=== PATIENT | female | born 1995 | race Hispanic/Latino ===

== ENCOUNTER 2018-11-24 18:25 | Emergency (ER) | payer SELFPAY ==
[2018-11-24 19:19] LABS: Bilirubin Negative (Negative); Blood, Urine Negative (Negative); Clarity CLOUDY (Clear); Glucose, Urine (Dipstick) 100 mg/dL (Negative); Leukocyte Moderate (Negative); Nitrite Negative (Negative); Protein, Urine (Dipstick) Trace mg/dL (Neg-Trace); Specific Gravity, Urine 1.023 (1.002-1.036); pH, Urine 7.5 (5.0-9.0)
[2018-11-24 19:21] LABS: Bacteria/HPF 2+ HPF (None Seen); Hyaline Casts/LPF 4-6 HYALINE CAST LPF (0-3 Hyaline); Pathc Cast-AUWi Flag 1.63 (0-2.49); Squamous Epithelial 0-3 HPF (0-3)
== END 2018-11-24 20:06 | disposition home or self-care (01) ==
LOC: ERS 18:25
DX: O99.89 Other specified diseases and conditions complicating pregnancy, childbirth and the puerperium (principal); R04.0 Epistaxis; O23.42 Unspecified infection of urinary tract in pregnancy, second trimester; Z3A.23 23 weeks gestation of pregnancy
CPT/HCPCS: 36416; 81003; 81015; 87086; 99284

== ENCOUNTER 2019-02-08 20:08 | Inpatient (IN) | payer SELFPAY ==
[2019-02-08] MEDS ORDERED: Lidocaine 1% (PF) 30 ML VIAL SC PRN (20:44)
[2019-02-08] MEDS ORDERED: Ondansetron PF 4 MG/2 ML Vial IVP PRN (20:44)
[2019-02-08] MEDS ORDERED: Promethazine HCl 25 MG/ML VIAL IM PRN (20:44)
[2019-02-08] MEDS ORDERED: NS / Oxytocin 40 units/1000ml 1,000 ML IV PRN (20:44)
--- NOTE | 2019-02-08 20:56 | PDOC.FPROB ---
FMR OB H&P: HPI - History of Present Illness Chief Complaint: Medical IOL 2/2 oligohydramnios and grade 3 placenta History of Present Illness: This is a at 37.4 wks by 31.4 wk (EDC 02/25/2019) US who presents to L&D from clinic this afternoon after an OB ultrasound showing GAURAV of 1.38 and a Grad 3 placenta. Pt's is further complicated by GBS positive status and Late to PNC. She denies fever, chills, LOF, vaginal bleeding, chest pain, SOB. Pt reports FM. Primary Care Physician: Dr. Braulio Mccoy FMR OB H&P: Current - Care : 2 Para: 0 Gestational age: 37.4 Due date: 02/25/2019 Dating Criteria: 31.4 wk US - OB Labs Blood type: O RH: positive Antibody Screen: negative HIV: negative RPR: negative HepBsAg: negative Rubella: immune Gonorrhea: negative Chlamydia: negative Pap Smear: Negative 1 hour gtt: 95 A1c: 5.4 GBS: positive FMR OB H&P: History - Past Medical History PMH: None - OB History OB History: Previous miscarriage - [employer] MANAGER History [employer] MANAGER History: none - Surgical History Sx History: None - Social History Social History: None - Family History Family History: none FMR OB H&P: Medications - Current Home Medications: Medication Instructions Recorded Confirmed Type Vit37/Iron/Folic Acid 1 tab PO DAILY 02/08/19 02/08/19 History [Prenata Chewable Tablet] Allergies/Adverse Reactions: Allergies Allergy/AdvReac Type Severity Reaction Status Date / Time No Known Drug Allergies Allergy Verified 02/08/19 22:05 FMR OB H&P: ROS - Review of Systems General: denies: fever/chills, weight/appetite/sleep changes, night sweats, fatigue Eyes: denies: eye pain, vision changes ENT: denies: nasal congestion, rhinorrhea, pain with swallowing Cardiovascular: denies: chest pain, palpitation, edema Respiratory: denies: cough, congestion, shortness of breath Gastrointestinal: reports: diarrhea (twice). denies: abdominal pain, nausea, vomiting Genitourinary (Female): denies: incontinence, dysuria, hematuria, vaginal pain, vaginal pressure Musculoskeletal: denies: pain, stiffness Neurologic: denies: numbness, syncope Integumentary: denies: itching Psychological: denies: depression, anxiety FMR OB H&P: Vital Signs - Maternal Vital signs: BP 121/71, HR 93, RR 18, Temp 98.7 - Heart Tones Baseline: 140 Variability: moderate Acceleration: present Deceleration: absent Category: category 1 [place] contractions every: none FMR OB H&P: Physical Exam - Physical Exam General: NAD, awake, alert and oriented HEENT: normocephalic and atraumatic, PERRLA, MMM, conjunctiva clear, grossly normal hearing, oropharynx clear Neck: supple, FROM, trachea midline Chest: non-tender to palpation Heart: RRR, normal S1/S2, no murmurs/rubs/gallops, pulses present General: CTAB, no respiratory distress, good air movement, no wheezing Abdomen: soft, gravid, non-tender, bowel sound present Musculoskeletal: normal gait and station, pulses present, FROM in all four extremities Neurological: cranial nerves II through XII intact, no focal deficit Skin: good tugor, capillary refill <2 seconds Lymphatic: no unusual bruising or bleeding, no purpura Psychiatric: intact recent and remote memory, good judgement and insight - Pelvic Exam SVE: 0/0/-3 Matos score: 0 FMR OB H&P: A/P - Problem List (1) Term Current Visit: Yes Status: Acute Code(s): Z34.90 - ENCNTR FOR SUPRVSN OF NORMAL , UNSP, UNSP TRIMESTER (2) grade 3 placenta Current Visit: Yes Status: Acute (3) GBS (group B streptococcus) infection Current Visit: Yes Status: Acute Code(s): A49.1 - STREPTOCOCCAL INFECTION, UNSPECIFIED SITE (4) Oligohydramnios Current Visit: Yes Status: Acute Code(s): O41.00X0 - OLIGOHYDRAMNIOS, UNSP TRIMESTER, NOT APPLICABLE OR UNSP Disposition: This is a 23 yo at 37.4 wks by a 31.4 wk US presenting for a medically indicated IOL sIUP, term -Admit to L&D -NPO with ice chips -LR 125 ml/hr -Initial check: 0/0/-3 -FHTs 140s, Cat 1 -Plan for cytotec induction based on check -Will recheck 4 hrs after cytotec -Bedside US shows vertex position GBS positive -Start prophylaxis Oligohydramnios Late to PNC Discussion: Date/Time: 02/08/192049 This H&P was discussed with Dr. Jones and Dr. Brito who agree with the above documentation and plan. Addendum - Attending - Attending Attestation Date/Time: 02/09/19946 I personally evaluated the patient and discussed the management with Dr. Santos on 02/08/2019 I agree with the History, Examination, Assessment and Plan documented above with any addition or exceptions noted below - 23 yo @ 37.4 weeks sent from clinic for induction due to oligohydramnios. Patient denies ctx, LOF, VB. ( +)FM. Afebrile VSS. A/P: 1) IUP @37.4 weeks with oligohydramnios- unfavorable cervix; will use misprostil for cervical ripening and possible balloon. Category 1 FHTs.
[2019-02-08] MEDS ORDERED: Penicillin G Potassium 5 MILL.UNITS in Sodium Chloride 0.9% 100 ML IVPB SCH (21:00)
[2019-02-08 21:03] VITALS: BMI 31.9
[2019-02-08] MEDS ORDERED: Misoprostol 100 MCG TAB ONE (21:24)
[2019-02-08 21:41] LABS: Hemoglobin 11.1 g/dL (12.0-16.0); Mean Corpuscular HGB CONC 33.9 g/dL (32.0-36.0); Mean Corpuscular Hemoglobin 29.2 pg (27.0-31.0); Mean Platelet Volume 10.3 fL (7.4-10.4); Platelet Count 158 thou/uL (130-400); RBC Distribution Width 15.7 % (11.5-14.5); Red Blood Cell (RBC) Count 3.81 mill/uL (4.20-5.40)
[2019-02-08] MEDS: Misoprostol 100 MCG TAB VAG SCH (22:04)
[2019-02-08 22:16] LABS: Syphilis Antibody Nonreactive (Nonreactive); Syphilis Antibody Index 0.02 S/CO (<1.00 Non-Reactive)
[2019-02-08 22:24] LABS: HBSAg Index 0.28 S/CO (0-0.99); Hep B Surf Ag Non-Reactive S/CO (NonReactive)
--- NOTE | 2019-02-09 01:53 | PDOC.LDPN ---
Labor & Delivery Progress Note - Subjective Subjective: comfortable - Objective Vital signs reviewed and normal: yes General: NAD, resting Uterine fundus: non tender SVE: 1:40 Dilation: 1 Effacement: 0% Station: -3 FHT: category 1, variability present [place] contractions every: Occasional - Assessment (1) GBS (group B streptococcus) infection Code(s): A49.1 - STREPTOCOCCAL INFECTION, UNSPECIFIED SITE Current Visit: Yes Status: Acute (2) Oligohydramnios Code(s): O41.00X0 - OLIGOHYDRAMNIOS, UNSP TRIMESTER, NOT APPLICABLE OR UNSP Current Visit: Yes Status: Acute (3) Term Code(s): Z34.90 - ENCNTR FOR SUPRVSN OF NORMAL , UNSP, UNSP TRIMESTER Current Visit: Yes Status: Acute (4) grade 3 placenta Current Visit: Yes Status: Acute Plan: continue plan of care, labor augmentation -: This is a 23 yo at 37.5 wks by a 31.4 wk US presenting for a medically indicated IOL sIUP, term -NPO with ice chips -LR 125 ml/hr -SVE: 1/0/-3. -FHTs 140s, Cat 1 -Cytotec administered again at this time for labor augmentation -Bedside US shows vertex position GBS positive -Start prophylaxis Oligohydramnios
[2019-02-09] MEDS: Lactated Ringer's 1,000 ML IV SCH ×5 (04:46→23:26)
--- NOTE | 2019-02-09 06:09 | PDOC.LDPN ---
Labor & Delivery Progress Note - Subjective Subjective: comfortable, no concerns, other (Feeling contractions more) - Objective Vital signs reviewed and normal: yes General: NAD, resting SVE: 1.5/50/-2 FHT: category 1 (Baseline 130s), variability present (modedrate) [place] contractions every: 1-2 minutes - Assessment (1) Term Code(s): Z34.90 - ENCNTR FOR SUPRVSN OF NORMAL , UNSP, UNSP TRIMESTER Current Visit: Yes Status: Acute (2) grade 3 placenta Current Visit: Yes Status: Acute (3) GBS (group B streptococcus) infection Code(s): A49.1 - STREPTOCOCCAL INFECTION, UNSPECIFIED SITE Current Visit: Yes Status: Acute (4) Oligohydramnios Code(s): O41.00X0 - OLIGOHYDRAMNIOS, UNSP TRIMESTER, NOT APPLICABLE OR UNSP Current Visit: Yes Status: Acute Plan: continue plan of care -: This is a 23 yo at 37.5 wks by a 31.4 wk US presenting for a medically indicated IOL sIUP, term -NPO with ice chips -LR 125 ml/hr -SVE: 1.5/50/-2. -FHTs 130s, Cat 1 -Unable to give cytotec at this time due to contractions, consider balloon vs pitocin -Bedside US shows vertex position GBS positive -Start prophylaxis Oligohydramnios Late to care
--- NOTE | 2019-02-09 06:50 | PDOC.LDPN ---
Labor & Delivery Progress Note - Subjective Subjective: comfortable - Objective Vital signs reviewed and normal: yes General: NAD, resting Uterine fundus: non tender SVE: 645 Dilation: 2 Effacement: 50% Station: -3 FHT: category 1, variability present [place] contractions every: 4 - Assessment (1) GBS (group B streptococcus) infection Code(s): A49.1 - STREPTOCOCCAL INFECTION, UNSPECIFIED SITE Current Visit: Yes Status: Acute (2) Oligohydramnios Code(s): O41.00X0 - OLIGOHYDRAMNIOS, UNSP TRIMESTER, NOT APPLICABLE OR UNSP Current Visit: Yes Status: Acute (3) Term Code(s): Z34.90 - ENCNTR FOR SUPRVSN OF NORMAL , UNSP, UNSP TRIMESTER Current Visit: Yes Status: Acute (4) grade 3 placenta Current Visit: Yes Status: Acute Plan: continue plan of care, labor augmentation -: This is a 23 yo at 37.5 wks by a 31.4 wk US presenting for a medically indicated IOL sIUP, term -NPO with ice chips -LR 125 ml/hr -SVE: 2/50/-2. Balloon placed. Will check in a few hours -FHTs 130s, Cat 1 -Bedside US shows vertex position GBS positive -Start prophylaxis Oligohydramnios Late to care
[2019-02-09] MEDS: Misoprostol 100 MCG TAB VAG SCH ×5 (07:17→23:24)
[2019-02-09] MEDS: Penicillin G 2.5 MILL.units 2.5 MILL.UNITS in Premix Bag 1 BAG IVPB SCH ×5 (07:17→23:24)
[2019-02-09] MEDS ORDERED: NS w/ Oxytocin 10 units 500 ML ONE (10:12)
[2019-02-09] MEDS ORDERED: NS w/ Oxytocin 10 units 500 ML IV SCH (10:15)
--- NOTE | 2019-02-09 10:56 | PDOC.LDPN ---
Labor & Delivery Progress Note - Subjective Subjective: comfortable - Objective Vital signs reviewed and normal: yes General: NAD, resting Uterine fundus: non tender [place] contractions every: 4-5 minutes - Assessment (1) GBS (group B streptococcus) infection Code(s): A49.1 - STREPTOCOCCAL INFECTION, UNSPECIFIED SITE Current Visit: Yes Status: Acute (2) Oligohydramnios Code(s): O41.00X0 - OLIGOHYDRAMNIOS, UNSP TRIMESTER, NOT APPLICABLE OR UNSP Current Visit: Yes Status: Acute (3) Term Code(s): Z34.90 - ENCNTR FOR SUPRVSN OF NORMAL , UNSP, UNSP TRIMESTER Current Visit: Yes Status: Acute (4) grade 3 placenta Current Visit: Yes Status: Acute Plan: continue plan of care, pitocin for augmentation -: This is a 23 yo at 37.5 wks by a 31.4 wk US presenting for a medically indicated IOL sIUP, term -NPO with ice chips -LR 125 ml/hr -SVE: 2/50/-2@645. Balloon was placed @ 6:45. Balloon still in place on tug check at this time. Pt doing well. -Pt denies any severe pain at this time. -Will continue to monitor until balloon falls out. Will continue to check with increased pain or pressure. -FHTs 140, Cat 1 -Bedside US shows vertex position GBS positive -Start prophylaxis Oligohydramnios Late to care
--- NOTE | 2019-02-09 13:14 | PDOC.LDPN ---
Labor & Delivery Progress Note - Subjective Subjective: painful contractions - Objective Vital signs reviewed and normal: yes General: NAD Uterine fundus: non tender SVE: 1245 Dilation: 5 Effacement: 75% Station: -1 FHT: category 2, early decelerations, variability present [place] contractions every: 4 minutes - Assessment (1) GBS (group B streptococcus) infection Code(s): A49.1 - STREPTOCOCCAL INFECTION, UNSPECIFIED SITE Current Visit: Yes Status: Acute (2) Oligohydramnios Code(s): O41.00X0 - OLIGOHYDRAMNIOS, UNSP TRIMESTER, NOT APPLICABLE OR UNSP Current Visit: Yes Status: Acute (3) Term Code(s): Z34.90 - ENCNTR FOR SUPRVSN OF NORMAL , UNSP, UNSP TRIMESTER Current Visit: Yes Status: Acute (4) grade 3 placenta Current Visit: Yes Status: Acute Plan: continue plan of care, pitocin for augmentation -: This is a 23 yo at 37.5 wks by a 31.4 wk US presenting for a medically indicated IOL sIUP, term -NPO with ice chips -LR 125 ml/hr -SVE: 5/70/-1 @ 13:00 Balloon was placed @ 6:45 and was no longer in place at this check. Balloon removed. -Pt denies any severe pain at this time. -FHTs 140's. Early decels noted, Moderate Variability. Cat 2 strip. -Will continue with q2 hr cervical checks. -Bedside US shows vertex position GBS positive -Start prophylaxis Oligohydramnios Late to care
--- NOTE | 2019-02-09 14:31 | PDOC.LDPN ---
Labor & Delivery Progress Note - Subjective Subjective: painful contractions - Objective Vital signs reviewed and normal: yes General: NAD SVE: /-1 FHT: category 1 [place] contractions every: q2-3 min - Assessment (1) Term Code(s): Z34.90 - ENCNTR FOR SUPRVSN OF NORMAL , UNSP, UNSP TRIMESTER Current Visit: Yes Status: Acute (2) grade 3 placenta Current Visit: Yes Status: Acute (3) GBS (group B streptococcus) infection Code(s): A49.1 - STREPTOCOCCAL INFECTION, UNSPECIFIED SITE Current Visit: Yes Status: Acute (4) Oligohydramnios Code(s): O41.00X0 - OLIGOHYDRAMNIOS, UNSP TRIMESTER, NOT APPLICABLE OR UNSP Current Visit: Yes Status: Acute Plan: continue plan of care (IUP@37.5 weeks with oligohydramnios undergoing induction; progressing well. Pitocin started for augmentation. Reassuring FHTs. )
[2019-02-09] MEDS ORDERED: Ondansetron PF 4 MG/2 ML Vial ONE ×2 (16:24→20:14)
[2019-02-09] MEDS ORDERED: Dexamethasone 20 MG/5 ML VIAL ONE (16:24)
[2019-02-09] MEDS ORDERED: Ketorolac Tromethamine 30 MG/ML VIAL ONE ×2 (16:24→20:14)
--- NOTE | 2019-02-09 16:28 | PDOC.LDPN ---
Labor & Delivery Progress Note - Subjective Subjective: painful contractions - Objective Vital signs reviewed and normal: yes General: NAD Uterine fundus: non tender SVE: 4:15 Dilation: 7 Effacement: 90% Station: 0 FHT: category 2, early decelerations, late decelerations, absent or minimal variables (Had a small string of minimal variables. Came back to moderate variability) [place] contractions every: 4-5 minutes AROM: clear fluid IUPC placed: yes FSE placed: yes Resuscitative measures: maternal oxygen, maternal IV fluids, maternal position change - Assessment (1) GBS (group B streptococcus) infection Code(s): A49.1 - STREPTOCOCCAL INFECTION, UNSPECIFIED SITE Current Visit: Yes Status: Acute (2) Oligohydramnios Code(s): O41.00X0 - OLIGOHYDRAMNIOS, UNSP TRIMESTER, NOT APPLICABLE OR UNSP Current Visit: Yes Status: Acute (3) Term Code(s): Z34.90 - ENCNTR FOR SUPRVSN OF NORMAL , UNSP, UNSP TRIMESTER Current Visit: Yes Status: Acute (4) grade 3 placenta Current Visit: Yes Status: Acute Plan: continue plan of care -: This is a 23 yo at 37.5 wks by a 31.4 wk US presenting for a medically indicated IOL sIUP, term -NPO with ice chips -LR 125 ml/hr -SVE: 7/90/0 @ 16:15. -Cat 2 strip, FHT 140's. F FPt having some Early/Late decels. Pt had small period of minimal variability. Recovered quickly after position change, scalp stim and maternal oxygen. AROM with check. Clear fluid noted. IUPC placed. FSE placed. -Will continue to monitor and check every 1-2 hours or with increasing pain. Balloon was placed @ 6:45 and was no longer in place at 13:00. Balloon removed. -Pt having some pain. Does not desire epidural at this time. -Bedside US shows vertex position GBS positive -Start prophylaxis Oligohydramnios -Induction of labor due to [place] Late to care
--- NOTE | 2019-02-09 18:12 | PDOC.LDPN ---
Labor & Delivery Progress Note - Subjective Subjective: painful contractions - Objective Vital signs reviewed and normal: yes General: breathing through contractions SVE: 6-7/80%/0 FHT: category 2 [place] contractions every: ctx q5 - Assessment (1) Term Code(s): Z34.90 - ENCNTR FOR SUPRVSN OF NORMAL , UNSP, UNSP TRIMESTER Current Visit: Yes Status: Acute (2) grade 3 placenta Current Visit: Yes Status: Acute (3) GBS (group B streptococcus) infection Code(s): A49.1 - STREPTOCOCCAL INFECTION, UNSPECIFIED SITE Current Visit: Yes Status: Acute (4) Oligohydramnios Code(s): O41.00X0 - OLIGOHYDRAMNIOS, UNSP TRIMESTER, NOT APPLICABLE OR UNSP Current Visit: Yes Status: Acute -: IUP@ 37.5 weeks undergoing induction for oligohydramnios FHTs with moderate variability/early and variable decels; pitocin off currently ; maternal position changes. Will give additional fluid bolus. Resume pitocin if variables resolve.
[2019-02-09] MEDS ORDERED: Azithromycin 500 MG VIAL ONE (19:20)
[2019-02-09] MEDS ORDERED: Bicitra 30 ML UDCUP ONE (19:20)
[2019-02-09] MEDS ORDERED: Azithromycin 500 MG in Sodium Chloride 0.9% 250 ML 250 ML IVPB SCH (19:24)
--- NOTE | 2019-02-09 19:27 | PDOC.LDPN ---
Labor & Delivery Progress Note - Subjective Subjective: painful contractions - Objective Vital signs reviewed and normal: yes General: breathing through contractions SVE: 670/-1 FHT: category 2 [place] contractions every: ctx q6min - Assessment (1) Term Code(s): Z34.90 - ENCNTR FOR SUPRVSN OF NORMAL , UNSP, UNSP TRIMESTER Current Visit: Yes Status: Acute (2) grade 3 placenta Current Visit: Yes Status: Acute (3) GBS (group B streptococcus) infection Code(s): A49.1 - STREPTOCOCCAL INFECTION, UNSPECIFIED SITE Current Visit: Yes Status: Acute (4) Oligohydramnios Code(s): O41.00X0 - OLIGOHYDRAMNIOS, UNSP TRIMESTER, NOT APPLICABLE OR UNSP Current Visit: Yes Status: Acute -: IUP@ 37 4/7 weeks undergoing induction for oligohydramnios No cervical change and unable to start pitocin due to persistent category 2 heart rate tracing. Situation discussed with patient and discussed need to proceed with section. Questions/risks discussed with patient. All questions answered. Patient verbalized understanding. Anesthesia notified.
[2019-02-09] MEDS ORDERED: CEFAZOLIN 2 GM in Premix Bag 1 BAG IVPB SCH (19:30)
[2019-02-09] MEDS ORDERED: Bicitra 30 ML UDCUP PO SCH (19:30)
[2019-02-09] MEDS ORDERED: Fentanyl 100 MCG/2 ML VIAL ONE (20:13)
[2019-02-09] MEDS ORDERED: MORPHINE 5 MG/10 ML PF VIAL ONE (20:13)
[2019-02-09] MEDS ORDERED: PHENYLEPHRINE-NS 100 MCG/ML 10 ML SYRINGE ONE (20:14)
[2019-02-09] MEDS ORDERED: Oxytocin 10 UNITS/ML VIAL ONE (20:14)
[2019-02-09] MEDS ORDERED: Dexamethasone 4 mg/ml Vial ONE (20:14)
[2019-02-09] MEDS ORDERED: Promethazine HCl 25 MG/ML VIAL IM PRN (20:44)
[2019-02-09] MEDS ORDERED: Naloxone HCl 0.4 mg/ml Vial IV PRN (20:44)
[2019-02-09] MEDS ORDERED: Ondansetron PF 4 MG/2 ML Vial IVP PRN (20:44)
[2019-02-09] MEDS ORDERED: Ondansetron HCl/PF 4 MG/2 ML Vial IVP PRN (20:44)
[2019-02-09] MEDS ORDERED: Naloxone HCl 0.4 mg/ml Vial IVP PRN ×2 (20:44)
[2019-02-09] MEDS ORDERED: Promethazine HCl 25 MG SUPP PR PRN (20:44)
[2019-02-09] MEDS ORDERED: diphenhydrAMINE 50 MG/ML VIAL IVP PRN (20:44)
[2019-02-09] MEDS ORDERED: Ketorolac Tromethamine 30 MG/ML VIAL IVP SCH (20:45)
[2019-02-09] MEDS ORDERED: Communication Order-Pharmacy FS SCH (20:45)
[2019-02-09] MEDS ORDERED: Acetaminophen 1,000 MG in Premix Bag 1 BAG IVPB PRN ×2 (20:45→22:17)
[2019-02-09 21:09] LABS: Actual Bicarbonate (HCO3a) 20.6 mEq/L (22-28); Base Excess (BEa) -7.7 mEq/L (-2.0 to +3.0)
--- NOTE | 2019-02-09 22:25 | PDOC.OPDEL ---
OB Operative/Delivery Note Delivery Dr/Surgeon: Canon Hardy Assist: Karen Pre-Delivery Diagnosis: non-reassuring tracing (persistent cat 2 strip, intolerance of labor) Weeks gestation: 37 Anesthesia: spinal - Additional Findings/Plan Placenta delivered: spontaneous findings: low transverse hysterotomy with extension (right lower segment) Estimated blood loss: qBL: 550 Compilations/Other Findings: Date of Procedure: 02/09/19 Resident Surgeon: Dr. Dash Carpet Inspector Surgeon: Dr. Florez Attending Surgeon: Dr. Jones Procedure: Primary low transverse caesarean section Preoperative Diagnosis: 1)Term intrauterine 2) Oligohydramnios 3.) Grade 3 placenta 4.) intolerance of labor/persistent category 2 strip Postoperative Diagnosis: 1) Term intrauterine ,delivered 2) Oligohydramnios 3.) Grade 3 placenta 4.) intolerance of labor/persistent category 2 strip 5.) LOT position Anesthesia: spinal Indications: The patient is a 23 year old female at 37.5weeks gestation who presented initially for an induction 2/2 oligohydramnios converted to a primary LTCS 2/2 intolerance of labor/persistent category 2 strip. Procedure in Detail: After risks, benefits, and alternatives were explained to the patient, she gave informed consent. Pre-operative antibiotics included Cefazolin 2 gram IV. The patient was taken to the operating room and spinal anesthesia was initiated. She was placed in the supine position with a left tilt and prepped and draped in usual sterile fashion. A Pfannenstiel incision was made with a scalpel and carried down to the level of the fascia which was sharply nicked. The fascial cut was extended manually and bilaterally with Rizzo scissors. The inferior and superior edges of the cut fascial edges were elevated with Amada clamps and the underlying rectus muscles were sharply and bluntly dissected free. The recti were divided digitally and retracted manually. The peritoneum was entered bluntly and retracted manually. Bladder blade was placed. Bladder flap was created with Metzenbaum scissors. A low transverse score was made with the scalpel and the uterus was entered in the midline with the scalpel. Clear fluid was seen. The hysterotomy was extended manually. The was noted to be LOT position and was delivered by fundal pressure. Mouth and nares were bulb suctioned. Cord clamped and cut and grossly normal female infant was handed to waiting nurse. Cord gas and blood were obtained. Placenta was spontaneously extracted, found to be intact with 3 vessel cord and discarded. The uterus was externalized and the endometrium was curetted with a dry lap. Bladder blade replaced. A right midline uterine extension was seen and repaired first with a #1 Monocryl suture, followed by an imbricating layer using #1 Monocryl again. The uterus was then closed with a running locking #1 Monocyrl suture followed by a running non-locking #1 Monocryl imbricating suture in the usual fashion. Following this hemostasis was noted. The abdomen was irrigated with saline and suctioned free of clots. The uterus was internalized and the hysterotomy was again noted to be hemostatic. The fascia was closed with a running non-locking 0-Vicryl suture. The subcutaneous tissue was irrigated and there were few bleeders, cauterized with the bovi and followed by good hemostasis. The subcutaneous tissue was aproximated using a 3-0 Plain suture in the simple interrupted fashion. The skin was approximated with a 4-0 Monocryl in the subcuticular fashion, followed by dermabond. A pressure dressing was placed. All counts were correct. The patient tolerated the procedure well and was taken to the recovery room in stable condition. QBL: 580ml Complications: None Specimens: Cord gas and blood sent to lab Findings: Grossly normal female with Apgars of 9&9. Grade 3 placenta with 3 vessel cord discarded. Drains: Brown to gravity draining clear urine UOP: 550ml Post delivery plan: recovery in LICU
--- NOTE | 2019-02-09 22:30 | PDOC.EVN ---
Event Note - Event Note Event Note: 23 yo @ 37 5/7 weeks underwent a 1* LCT C/S under my direct supervision and assistance due to intolerance of labor, oligohydramnios and Grade 3 placenta. Viable female in LOT position delivered with minimal difficult. Nuchal/body cord x 1. Apgars 9/9. 3 cm midline extension of hysterotomy along lower edge closed with 0-Monocryl running locked fashion followed by closure of hysterotomy in 2 layers. QBL 580mL. and mother instable condition. Residents: Hardy/Kwasi
[2019-02-10] MEDS ORDERED: Simethicone Chewable 80 MG TAB PO PRN (00:21)
[2019-02-10] MEDS ORDERED: NS / Oxytocin 40 units/1000ml 1,000 ML IV SCH (00:21)
[2019-02-10] MEDS ORDERED: Lanolin Ointment 7 GM TUBE TOP PRN (00:21)
[2019-02-10] MEDS ORDERED: diphenhydrAMINE 25 MG CAP PO PRN (00:21)
[2019-02-10] MEDS ORDERED: Ondansetron PF 4 MG/2 ML Vial IVP PRN (00:21)
[2019-02-10] MEDS ORDERED: Bisacodyl 10 MG SUPP PR PRN (00:21)
--- NOTE | 2019-02-10 02:43 | PDOC.EVN ---
Event Note - Event Note Event Note: 4 hour post-op note: S: Patient reports that she is feeling well. Denies any incision site pain, fever/chills, chest pain, or SOB. Has not yet gotten out of bed and ferreira is still in place. Reports minimal vaginal bleeding. VS: Afebrile HR: 69 RR: 18 BP: 105/52 PE: Gen: NAD & sitting up in bed getting ready to breastfeed CV: RRR, no murmurs Lungs: CTAB Abd: Pressure dressing clean & dry in place over incision site 23YO pp day #0 s/p primary LTCS 2/2 arrest of active labor w/ a persistent cat 2 strip. 1. PP day #0 s/p primary LTCS - Will continue routine PP care. - Plans to breast & bottle feed but will consult internet sales consultant since patient is first time mom wanting to breastfeed. 2. GBS positive - Aware, s/p adequate treatment 3. Oligohydramnios -Induction of labor due to [place] 4. Grade III placenta - IOL 2/2 grade III placenta & problem #3. 5. Late to care 6. Anemia in - Hgb 11.1 on admission. - AM hemagram ordered for later this AM. - Will resume PNVs & start PO iron.
[2019-02-10] MEDS ORDERED: Acetaminophen 1,000 MG in Premix Bag 1 BAG IVPB PRN (03:00)
[2019-02-10] MEDS: Ketorolac Tromethamine 30 MG/ML VIAL IVP SCH ×4 (03:29→21:27)
[2019-02-10] MEDS: Lactated Ringer's 1,000 ML IV SCH (06:03)
[2019-02-10 06:25] LABS: Hemoglobin 9.8 g/dL (12.0-16.0); Mean Corpuscular HGB CONC 33.3 g/dL (32.0-36.0); Mean Corpuscular Hemoglobin 28.9 pg (27.0-31.0); Mean Corpuscular Volume 86.9 fL (78.0-98.0); Mean Platelet Volume 10.3 fL (7.4-10.4); Platelet Count 144 thou/uL (130-400); RBC Distribution Width 15.7 % (11.5-14.5); Red Blood Cell (RBC) Count 3.39 mill/uL (4.20-5.40)
--- NOTE | 2019-02-10 07:17 | PDOC.PP ---
Post Progress Note Post Day #: 1 Subjective: Pt resting in bed at this time. Reports pain being well controlled. Reports lochia like normal period. Pt has not had anything to eat. Has not passed gas yet. Denies any acute event overnight. Denies any fever or chills. Denies any headache or vision changes. Denies any chest pain or SOB. Denies any swelling PO intake tolerated: no (Unknown has not tried to eat anything at this time) Flatus: no Ambulation: no Vital Signs (12 hours) Temp Pulse Resp BP Pulse Ox 02/10/19 06:23 18 02/10/19 03:42 98.2 F 68 18 95/52 L 02/10/19 01:40 98.2 F 66 18 103/54 L 02/10/19 00:40 98.7 F 65 18 102/52 L 97 02/09/19 20:44 99.1 F 86 18 115/57 L Weight Weight 76.657 kg - Physical Examination General: NAD Cardiovascular: no m/r/g, RRR Respiratory: clear to auscultation bilaterally, non-labored breathing Abdominal: + bowel sounds, lochia (Reports like normal period), no distention, appropriately TTP Fundus firm & at: below umbilicus Extremities: negative homans (B) Skin: CS incision dry & intact (Dressing in place. No redness noted.), no rash Neurological: no gross focal deficits Psychiatric: A&Ox3, normal affect Result Diagrams: 02/10/19 05:59 Additional Labs: Post Labs Blood Type O POSITIVE 02/08/19 21:13 Hep Bs Antigen Non-Reactive S/CO (NonReactive) 02/08/19 21:13 (1) GBS (group B streptococcus) infection Code(s): A49.1 - STREPTOCOCCAL INFECTION, UNSPECIFIED SITE Status: Acute (2) Oligohydramnios Code(s): O41.00X0 - OLIGOHYDRAMNIOS, UNSP TRIMESTER, NOT APPLICABLE OR UNSP Status: Acute (3) Term Code(s): Z34.90 - ENCNTR FOR SUPRVSN OF NORMAL , UNSP, UNSP TRIMESTER Status: Acute (4) grade 3 placenta Status: Acute (5) Anemia affecting Code(s): O99.019 - ANEMIA COMPLICATING , UNSPECIFIED TRIMESTER Status : Acute - Assessment/Plan 23YO @ 37.5 wks delivered via primary LTCS 2/2 arrest of active labor w / a persistent cat 2 strip. -PP day #1 s/p primary LTCS - Will continue routine PP care. - Plans to breast & bottle feed but will consult legal consultant since patient is first time mom wanting to breastfeed. -Continue current pain regimen and adjust as needed -GBS positive - Aware, s/p adequate treatment - Oligohydramnios -Induction of labor due to Oligo - Grade III placenta - IOL 2/2 grade III placenta & problem #3. -Late to care -Anemia in - Hgb 11.1 on admission. Hgb 9.1 this morning. Pt asx at this time. - Will resume PNVs & start PO iron. Addendum - Attending - Attending Attestation Date/Time: 02/10/19 1037 I personally evaluated the patient and discussed the management with Dr. Brito I agree with the History, Examination, Assessment and Plan documented above with any addition or exceptions noted below - Patient without complaints. Tolerating soft diet. Afebrile VSS. A/P: 1) POD #1 s/p 1* LCT C/S - continue routine care. H/H stable. Advance diet as tolerated.
[2019-02-10] MEDS ORDERED: HYDROcodone/Acetaminophen 5/325 mg Tablet PO PRN ×2 (08:45)
[2019-02-10] MEDS ORDERED: Adacel (T-DAP) 0.5 ML SYRINGE IM ONE (09:00)
[2019-02-10] MEDS: Ferrous Sulfate 325 MG TAB PO SCH (09:02)
[2019-02-10] MEDS: Prenatal Vitamin 1 TAB PO SCH (09:04)
[2019-02-10] MEDS ORDERED: Sodium Chloride 0.9% 10 ML ONE (21:20)
[2019-02-11] MEDS ORDERED: Ibuprofen 800 MG TAB PO SCH (06:00)
--- NOTE | 2019-02-11 06:21 | PDOC.PP ---
Post Progress Note Post Day #: 2 Subjective: NAEO, no concerns from nursing or patient. Patient desires to go home. PO intake tolerated: yes Flatus: yes Ambulation: yes Vital Signs (12 hours) Temp Pulse Resp BP BP Pulse Ox 02/11/19 04:30 98.7 F 78 16 105/57 L 98 02/10/19 23:55 98.4 F 96 20 105/50 L 97 02/10/19 20:45 98.3 F 81 20 112/56 L 100 Weight Weight 76.657 kg - Physical Examination General: NAD Cardiovascular: no m/r/g, RRR Respiratory: clear to auscultation bilaterally Abdominal: lochia, appropriately TTP Skin: CS incision dry & intact Neurological: no gross focal deficits Psychiatric: A&Ox3, normal affect Result Diagrams: 02/10/19 05:59 Additional Labs: Post Labs Blood Type O POSITIVE 02/08/19 21:13 Hep Bs Antigen Non-Reactive S/CO (NonReactive) 02/08/19 21:13 - Assessment/Plan 23YO @ 37.5 wks delivered via primary LTCS 2/2 arrest of active labor w / a persistent cat 2 strip. PP day #2 s/p primary LTCS - Will continue routine PP care - Plans to breast & bottle feed but will consult financial consultant since patient is first time mom wanting to breastfeed. -Continue current pain regimen and adjust as needed GBS positive - Aware, s/p adequate treatment Oligohydramnios -Induction of labor due to Oligo Grade III placenta - IOL 2/2 grade III placenta & problem #3. Late to care Anemia in - Hgb 11.1 on admission. Hgb 9.1 this morning. Pt asx at this time. - Will resume PNVs & start PO iron. - Will send rx Dispo: home today, will send rx for medications. F/u with Dr. Mccoy at [facility] for visit in 2 weeks Addendum - Attending - Attending Attestation Date/Time: 02/11/19 9549 I personally evaluated the patient and discussed the management with Dr. Desai I agree with the History, Examination, Assessment and Plan documented above with any addition or exceptions noted below.
[2019-02-11] MEDS: Ferrous Sulfate 325 MG TAB PO SCH (09:22)
[2019-02-11] MEDS: Prenatal Vitamin 1 TAB PO SCH (09:23)
[2019-02-11 11:34] VITALS: BP 103/51; TEMP 97.6
== END 2019-02-11 13:30 | disposition home or self-care (01) | DRG 788 ==
LOC: L&D/OP 20:08 → L&D 21:29 → 3SW 02-10 00:56
PROVIDERS: ADMIT Family Medicine; ATTEND Family Medicine
PROC: 3E0P7VZ Introduction of Hormone into Female Reproductive, Via Natural or Artificial Opening (ICD-10-PCS; 2019-02-08)
PROC: 3E033VJ Introduction of Other Hormone into Peripheral Vein, Percutaneous Approach (ICD-10-PCS; 2019-02-08)
PROC: 10D00Z1 Extraction of Products of Conception, Low, Open Approach (ICD-10-PCS; principal; 2019-02-09)
DX: O41.03X0 Oligohydramnios, third trimester, not applicable or unspecified (principal); O99.824 Streptococcus B carrier state complicating childbirth; Z3A.37 37 weeks gestation of pregnancy; Z37.0 Single live birth; O76 Abnormality in fetal heart rate and rhythm complicating labor and delivery; O61.0 Failed medical induction of labor; O69.81X0 Labor and delivery complicated by cord around neck, without compression, not applicable or unspecified; O99.03 Anemia complicating the puerperium; D64.9 Anemia, unspecified
CPT/HCPCS: 36415; 51702; 82805; 85027; 86780; 86850; 86900; 86901; 87340; J0131; J0456; J0690; J1100; J1885; J2001; J2270; J2405; J2540; J2590; J3010; J3490